=== PATIENT | male | born 1985 | race Caucasian/White ===

== ENCOUNTER 2024-08-07 10:52 | Emergency (ER) | payer OTHER, SELFPAY ==
[2024-08-07 11:02] VITALS: BP 182/110; PULSE 82; RESP 18; TEMP 36.6; O2SAT 97; BMI 25.7
--- NOTE | 2024-08-07 11:03 | ED.GENADULT ---
HPI - General Adult General Chief complaint: Shortness of Breath/Dyspnea Stated complaint: cough/,sore throat/ muchus Time Seen by Provider: 08/07/24 11:03 History of Present Illness HPI narrative: 39-year-old gentleman seen primarily on [place], no medical records are available, history of hypertension notes that he has had an increasing cough for the last 2 weeks. Symptoms initially started as typical URI complaints with severe sore throat dry cough, sore throat is improving however cough seems to be getting worse in his exacerbated by movement breathing and talking. He is having brownish that is now turning more reddish sputum. He notes when he coughs he short of breath but at baseline is not actually dyspneic. [place] done was told that there was abnormality and CT scan was suggested but has not yet been completed. He states my made me come in because my cough is getting so bad. he is not complaining of palpitations no chest pain beyond that associated with his cough, no nausea vomiting or diarrhea. Related Data Previous Rx's Medication Instructions Recorded benzonatate 200 mg capsule 200 mg PO BID-TID PRN cough #14 08/07/24 caps doxycycline hyclate 100 mg capsule 100 mg PO BID #20 caps 08/07/24 Allergies Allergy/AdvReac Type Severity Reaction Status Date / Time propranolol Allergy Severe Swelling Verified 08/07/24 11:14 of Lip/Tongue/Throat Penicillins Allergy Hives Verified 08/07/24 11:14 Review of Systems Review of Systems Narrative: Pertinent positive and negative findings as per HPI Patient History Medical History (Updated 08/07/24 @ 12:24 by Tara Gómez MD) Hypertension Social History Smoking Status: Never smoker Exam Initial Vital Signs Initial Vital Signs: Vital Signs Temperature 97.9 F 08/07/24 11:02 Pulse Rate 82 08/07/24 11:02 Respiratory Rate 18 08/07/24 11:02 Blood Pressure 182/110 H 08/07/24 11:02 Pulse Oximetry 97 08/07/24 11:02 Oxygen Delivery Method Room Air 08/07/24 11:02 General: Healthy appearing, deep cough, minimally productive, no acute respiratory distress, able to speak in complete sentences HEENT: Moist mucous membranes, normal sclera with reactive pupils, no significant posterior pharyngeal erythema or exudate Respiratory: Lungs are clear to auscultation, no wheezing no rales no rhonchi. Full and symmetrical air movement Cardiac: Regular rate and rhythm no murmurs no bruits Abdomen: Soft, nontender, no rebound or guarding, no flank pain Skin: Warm and dry, no rashes Neurologic: Grossly neurologically intact with no obvious asymmetries or abnormalities Extremities: No trauma, well perfused Psych: Cooperative, appropriate insight and affect Course Orders Ordered: ED Orders 08/07/24 11:26 CT chest w con Stat 08/07/24 11:27 Complete Blood Count AUTO DIFF Stat Comprehensive Metabolic Panel Stat Vital Signs Vital signs: Vital Signs - 8 hr 08/07/24 11:02 Temperature 97.9 F Pulse Rate 82 Respiratory Rate 18 Blood Pressure 182/110 H Pulse Oximetry 97 Oxygen Delivery Method Room Air Medical Decision Making Lab Data 08/07/24 11:27 08/07/24 11:27 Labs: Lab Results 08/07/24 Range/Units 11:27 WBC 13.0 H (4.5-11.0) X10^3/uL RBC 5.32 (4.5-5.9) X10^6/uL Hgb 16.1 (13.5-17.5) g/dL Hct 47.7 (41-53) % MCV 89.6 (80-100) fL MCH 30.2 (26-34) PG MCHC 33.7 (30-36) % RDW 13.1 (11.6-14.8) % Plt Count 298 (150-400) X10^3/uL Neut % (Auto) 71.4 (50-75) % Lymph % (Auto) 18.2 L (25-40) % [place] % (Auto) 7.1 (3-14) % Eos % (Auto) 2.5 (2-4) % Baso % (Auto) 0.8 (0-2) % Neut # (Auto) 9300 H (4590-4610) /uL Lymph # (Auto) 2400 (5124-5750) /uL [place] # (Auto) 900 (0-900) /uL Eos # (Auto) 300 (0-450) /uL Baso # (Auto) 100 (0-100) /uL Sodium 143 (137-145) mmol/L Potassium 4.7 (3.4-5.1) mmol/L Chloride 102 (98-107) mmol/L Carbon Dioxide 26 (22-32) mmol/L BUN 12 (9-20) mg/dL Creatinine 1.28 H (0.66-1.25) mg/dL Estimated GFR > 60 (>60) mL/min BUN/Creatinine Ratio 9.4 (6-22) Glucose 82 (70-99) mg/dL Calcium 9.5 (8.4-10.2) mg/dL Total Bilirubin 1.2 (0.2-1.3) mg/dL AST 23 (17-59) IU/L ALT 26 (<50) IU/L Alkaline Phosphatase 77 (38-126) U/L Total Protein 9.0 H (6.3-8.2) g/dL Albumin 5.1 H (3.5-5.0) g/dL Globulin 3.9 (1.7-4.1) g/dL Albumin/Globulin Ratio 1.3 (1.0-2.8) Imaging Data CT scan - chest: Radiologist's Impression: PROCEDURE: CT CHEST W CON INDICATIONS: persistent cough, blood-tinged sputum, abnormal chest x-ray TECHNIQUE: After the administration of intravenous contrast, 5 mm thick sections acquired from the pulmonary apices to the posterior costophrenic angles. 1 mm axial lung, 5 mm thick coronal and sagittal reformats and 7 mm axial MIP were acquired. For radiation dose reduction, the following was used: automated exposure control, adjustment of mA and/or kV according to patient size. COMPARISON: Prior chest radiograph not available for review. FINDINGS: Image quality: Diagnostic. Lower Neck: No enlarged lymph nodes. Thyroid: No thyroid nodules which require sonographic follow up, per consensus guidelines. Axillae: No enlarged lymph nodes. Chest Wall: Unremarkable. Bones: Unremarkable. Lungs and Pleura: No pneumothorax or pleural effusions. No acute consolidations. No septal thickening or nodularity. A few scattered calcified pulmonary nodules compatible with prior granulomatous disease. No cavitary lesions. Otherwise, no suspicious pulmonary nodules identified. Heart: Heart size is normal. No pericardial effusion. Thoracic Vessels: The aorta and pulmonary arteries demonstrate normal size. Mediastinum and Avril: No enlarged lymph nodes. There are calcified mediastinal and hilar lymph nodes compatible with prior granulomatous disease. Esophagus: No wall thickening. No hiatal hernia. Upper Abdomen: Hepatic steatosis. Other visualized upper abdomen solid organs and bowel loops appear unremarkable. IMPRESSION: CT chest without acute cardiopulmonary abnormalities. No focal consolidation. No cavitary lesions. Multiple findings compatible with prior granulomatous disease. Hepatic steatosis. Dictated by: Emile Sousa M.D. on 08/07/2024 at 11:50 MDM Narrative Medical decision making narrative: CC:Persistent productive cough Complicating co-morbidities: hypertension Data collected from: patient Social determinants of health that may influence the patients condition: patient states he has a [id number] son who does not sleep which affects his sleep, he also notes that he has stopped doing all of his usual self care behaviors including regular exercise since become in a new father Medical records reviewed: none are available Differential considered: pneumonia, given his lack of hypoxia and normal heart rate pulmonary embolism cell to be less likely, hypertensive crisis, pulmonary infarct, mass or tumor Exam documented above, pertinent findings include: patient appears fatigued but overall pulmonary exam is unremarkable Lab Test results independently reviewed as above. Pertinent findings: CBC shows a white count at 13.0 with minimal left shift no anemia chemistries show creatinine increased at 1.2 remainder of studies are unremarkable Imaging studies independently reviewed: as patient has already [place] an [place] CT scan of the chest is ordered Discussion: 39-year-old gentleman with persistent cough 2 weeks after upper respiratory symptoms seemed to be improving. Increasingly productive. Abnormal chest x-ray per patient and CT scan is ordered today. CT scan shows old granulomatous disease but no new significant findings. Regarding the productive cough we will place him on doxycycline for 10 days for presumed postviral bacterial pneumonia - hypertension, blood pressures have been significantly elevated while in the emergency department and have remained so. Over the last year patient has had significant health and lifestyle changes all of which seemed to be adversely affecting his blood pressure. [place]. Blood work is shared with him to [place]. I am concerned that his creatinine is slightly elevated and blood pressures are showing diastolic consistently over 100. We will ask him to review that with his primary care physician - acute situational disturbance with relationship disruption. Would recommend both individual and couples counseling Discharge Plan Departure Patient Disposition: Home Clinical Impression: Bacterial pneumonia Hypertension Qualifiers: Hypertension type: primary hypertension Qualified Code(s): I10 - Essential (primary) hypertension Instructions: DI for Pneumonia -- Adult, DI for High Blood Pressure Activity Restrictions/Additional Instructions: thank you for coming in today based on your report of an abnormal chest x-ray, persistent cough that is productive of brown sputum, we have done a chest CT scan today that does not show acute masses or significant abnormalities. Is some evidence of prior granulomatous disease. With the persistent cough and increasing sputum I am going to suggest doxycycline, an antibiotic for developing bacterial pneumonia. Your blood pressure has been significantly elevated in the emergency department today. This is concerning. At 39 year goal blood pressure is 120/70 returning to healthier habits including eating non process food, regular exercise, increasing water intake are all going to be helpful in better control of your blood pressure. Please make sure you reveal all of these issues with your primary care physician tomorrow, I have given you copies of blood work and chest scan antibiotics as well as some medicine to try to help suppress her cough slightly has been electronically transmitted to [facility] in [place] If you find that you are getting worse or develop any new symptoms, please feel free to return to the emergency department for further evaluation. Prescriptions: New doxycycline hyclate 100 mg capsule 100 mg PO BID Qty: 20 0RF benzonatate 200 mg capsule 200 mg PO BID-TID PRN (Reason: cough) Qty: 14 0RF Stand Alone Forms: Patient Portal/API/Survey
--- NOTE | 2024-08-07 11:26 | DI.CT.S_ITS ---
PROCEDURE: CT CHEST W CON INDICATIONS: persistent cough, blood-tinged sputum, abnormal chest x-ray TECHNIQUE: After the administration of intravenous contrast, 5 mm thick sections acquired from the pulmonary apices to the posterior costophrenic angles. 1 mm axial lung, 5 mm thick coronal and sagittal reformats and 7 mm axial MIP were acquired. For radiation dose reduction, the following was used: automated exposure control, adjustment of mA and/or kV according to patient size. COMPARISON: Prior chest radiograph not available for review. FINDINGS: Image quality: Diagnostic. Lower Neck: No enlarged lymph nodes. Thyroid: No thyroid nodules which require sonographic follow up, per consensus guidelines. Axillae: No enlarged lymph nodes. Chest Wall: Unremarkable. Bones: Unremarkable. Lungs and Pleura: No pneumothorax or pleural effusions. No acute consolidations. No septal thickening or nodularity. A few scattered calcified pulmonary nodules compatible with prior granulomatous disease. No cavitary lesions. Otherwise, no suspicious pulmonary nodules identified. Heart: Heart size is normal. No pericardial effusion. Thoracic Vessels: The aorta and pulmonary arteries demonstrate normal size. Mediastinum and Avril: No enlarged lymph nodes. There are calcified mediastinal and hilar lymph nodes compatible with prior granulomatous disease. Esophagus: No wall thickening. No hiatal hernia. Upper Abdomen: Hepatic steatosis. Other visualized upper abdomen solid organs and bowel loops appear unremarkable. IMPRESSION: CT chest without acute cardiopulmonary abnormalities. No focal consolidation. No cavitary lesions. Multiple findings compatible with prior granulomatous disease. Hepatic steatosis. Dictated by: Emile Sousa M.D. on 08/07/2024 at 11:50 Approved by: Emile Sousa M.D. on 08/07/2024 at 11:56
[2024-08-07 11:37] LABS: Add Manual Diff / Slide Review NO; Basophils Absolute Auto 100 /uL (0-100); Basophils Percent Auto 0.8 % (0-2); Eosinophils Absolute Auto 300 /uL (0-450); Eosinophils Percent Auto 2.5 % (2-4); Hematocrit 47.7 % (41-53); Hemoglobin 16.1 g/dL (13.5-17.5); Lymphocytes Absolute Auto 2400 /uL (1100-4500); Lymphocytes Percent Auto 18.2 % (25-40); Mean Corpuscular HGB Conc 33.7 % (30-36); Mean Corpuscular Hemoglobin 30.2 PG (26-34); Mean Corpuscular Volume 89.6 fL (80-100); Monocytes Absolute Auto 900 /uL (0-900); Monocytes Percent Auto 7.1 % (3-14); Neutrophils Absolute Auto 9300 /uL (1500-7000); Neutrophils Percent Auto 71.4 % (50-75); Platelet Count 298 X10^3/uL (150-400); Red Blood Cell Count 5.32 X10^6/uL (4.5-5.9); Red Cell Distribution Width 13.1 % (11.6-14.8)
[2024-08-07 11:38] VITALS: PULSE 79; RESP 12; O2SAT 100
[2024-08-07 11:52] LABS: Alanine Aminotransferase 26 IU/L (<50); Albumin 5.1 g/dL (3.5-5.0); Albumin Globulin Ratio 1.3 (1.0-2.8); Alkaline Phosphatase 77 U/L (38-126); Aspartate Aminotransferase 23 IU/L (17-59); BUN Creatinine Ratio 9.4 (6-22); Bilirubin Total 1.2 mg/dL (0.2-1.3); Blood Urea Nitrogen 12 mg/dL (9-20); Calcium 9.5 mg/dL (8.4-10.2); Carbon Dioxide 26 mmol/L (22-32); Chloride 102 mmol/L (98-107); Estimated Glomerular Filt Rate > 60 mL/min (>60); Globulin 3.9 g/dL (1.7-4.1); Glucose 82 mg/dL (70-99); HEMOLYSIS < 15 (0-50); Potassium 4.7 mmol/L (3.4-5.1); Sodium 143 mmol/L (137-145)
[2024-08-07 12:00] VITALS: PULSE 76; RESP 17; O2SAT 98
[2024-08-07 12:04] VITALS: BP 154/104; PULSE 79; RESP 15; O2SAT 99
== END 2024-08-07 12:28 | disposition home or self-care (01) ==
PROVIDERS: Emergency Provider Emergency Medicine
DX: J15.9 Unspecified bacterial pneumonia (principal); I10 Essential (primary) hypertension
CPT/HCPCS: 36415; 71260; 80053; 85025; 99283; 99284; Q9967